=== PATIENT | male | born 1995 | race African-American/Black ===

== ENCOUNTER → 2016-09-30 | Outpatient (CLI) | payer OTHER ==
--- NOTE | 2016-10-02 16:05 | DIAGNOSTIC IMAGING REPORT ---
RIGHT KNEE 4 OR MORE CLINICAL HISTORY: RIGHT KNEE PAIN AT LOWER POLE OF PATELLA Right COMPARISON STUDY: None. FINDINGS: No acute fracture dislocation within the right knee. Soft tissues are unremarkable. No significant knee effusion. Cartilage spaces are maintained. The patella appears intact. Mild fragmentation at the tibial tubercle which appears to be chronic. IMPRESSION: 1. No acute fracture dislocation within the right knee. 2. Mild chronic fragmentation at the tibial tubercle. This could represent a remote history of Bushra-Schlatter's disease Electronically signed by: Bert Manning M.D. 10/02/2016 4:03 PM Dictated Date/Time: 10/02/2016 3:55 PM
== END | disposition home or self-care (01) ==
LOC: C.RDSM 14:12
PROVIDERS: ATTEND Internal Medicine
DX: M25.561 Pain in right knee (principal)

== ENCOUNTER → 2016-10-09 | Outpatient (CLI) | payer OTHER ==
--- NOTE | 2016-10-09 15:04 | DIAGNOSTIC IMAGING REPORT ---
MRI OF THE RIGHT KNEE CLINICAL HISTORY: Right knee pain. COMPARISON STUDY: Progressive the right knee dated 10/02/2016. TECHNIQUE: MRI of the right knee was performed utilizing proton density, T1, and T2-weighted sequences in the axial, sagittal, coronal planes. IV contrast was not administered for this examination. FINDINGS: Menisci: The medial and lateral menisci are intact. Ligaments: The anterior and posterior cruciate ligaments are intact. The medial and lateral collateral ligaments are within normal limits. Extensor mechanism: The extensor mechanism is intact. There is mildly increased signal/tendinopathy seen within the patellar tendon at its insertion with mild adjacent edema in Hoffa's fat pad. Articular cartilage and bone: The articular cartilage is intact and well maintained all 3 compartments. Normal marrow signal is preserved of the visualized bony structures. A bone wound is noted in the lateral tibial plateau. Joint effusion: None Soft tissues: The musculature surrounding the knee joint is normal in bulk and signal intensity. A 1.4 cm ganglion cyst is noted posterior to the posterior tibial plateau. IMPRESSION: 1. There is no meniscal or ligamentous injury identified in the right knee. 2. There is mild tendinopathy within the patellar tendon at its insertion with adjacent edema in Hoffa's fat pad. The tendon itself is intact. 3. No bony abnormality is seen. 4. A 1.4 cm ganglion cyst is incidentally noted posterior to the tibial plateau. Electronically signed by: Yusef Drake M.D. 10/09/2016 3:03 PM Dictated Date/Time: 10/09/2016 2:53 PM
== END | disposition home or self-care (01) ==
LOC: C.MRI 13:48
PROVIDERS: ATTEND Internal Medicine
DX: M25.561 Pain in right knee (principal); M67.48 Ganglion, other site